=== PATIENT | female | born 1960 | race Native Hawaiian/Other Pacific Islander ===

== ENCOUNTER 2022-04-27 12:57 | Outpatient (CLI) | payer OTHER ==
[~2022-04-27 12:57] MED LIST: ALBU90AE13 INH; CETIRIZINE10 MG PO; CHERATUSSIN PO; FERROUS SULF325 M1 PO; Z-PAK PO
== END 2022-04-27 19:06 | disposition home or self-care (01) ==
LOC: MRI 12:57
PROVIDERS: ATTEND Nurse Practitioner Family
DX: M54.40 Lumbago with sciatica, unspecified side (principal)